=== PATIENT | male | born 1960 | race Caucasian/White ===

== ENCOUNTER → 2022-04-09 14:46 | Outpatient (BNVA) | payer OTHER, SELFPAY | PROVIDERS: Visit Provider Urology | DX: N40.0 Benign prostatic hyperplasia without lower urinary tract symptoms (principal); N32.0 Bladder-neck obstruction | CPT/HCPCS: 51798 ==

== ENCOUNTER 2022-05-28 11:53 | Outpatient (REF) | payer OTHER, SELFPAY | END 2022-05-28 11:54 | disposition home or self-care (01) | LOC: HO.US 11:53 | PROVIDERS: Visit Provider Urology | DX: R39.12 Poor urinary stream (principal); N32.0 Bladder-neck obstruction | CPT/HCPCS: 76857 ==